=== PATIENT | male | born 1945 | race Caucasian/White ===

== ENCOUNTER 2022-05-11 16:48 | Emergency (ER) | payer MEDICARE ==
[~2022-05-11] VITALS: Ht 182.9 cm; Wt 93.6 kg
[2022-05-11] VITALS (10 sets, daily range): BP systolic 138–148; BP diastolic 68–88
[2022-05-11] MEDS ORDERED: LOSARTAN POTASS25 MG PO (17:02)
[2022-05-11] MEDS ORDERED: ASPIRIN325 MG PO (17:03)
[2022-05-11] MEDS ORDERED: LOSARTAN POTASS50 MG PO (17:03)
[2022-05-11] MEDS ORDERED: OMEPRAZOLE10 MG PO (17:03)
[2022-05-11] MEDS ORDERED: LIPITOR20 MG PO (17:04)
[2022-05-11 17:56] LABS: BASO% 0.5 % (0-3); EOS% 0.8 % (0-8); HEMATOCRIT 44.2 % (39.0-50.0); HEMOGLOBIN 15.1 g/dl (14.0-18.0); IMMATURE GRANULOCYTES 0.2 % (0.0-5.0); LYMPH% 46.8 % (15-41); MEAN CELL VOLUME 88.6 fL CALC (80.0-100.0); MEAN CORPUSCULAR HGB 30.3 pG CALC (26.0-32.0); MEAN CORPUSCULAR HGB CONC 34.2 g/dL CAL (32.0-36.0); MONO% 4.1 % (2-13); NEUT# 4.81 thou/uL (1.82-7.42); NEUT% 47.6 % (42-76); RED BLOOD COUNT 4.99 mill/uL (4.70-6.10); RED CELL DISTRI WIDTH 12.4 % (11.5-15.5)
[2022-05-11 17:56] LABS: URINE BILIRUBIN - DIPSTICK NEGATIVE (NEGATIVE); URINE BLOOD DIPSTICK NEGATIVE (NEGATIVE); URINE COLOR YELLOW; URINE GLUCOSE - DIPSTICK NEGATIVE (NEGATIVE); URINE KETONE NEGATIVE (NEGATIVE); URINE LEUK ESTERASE NEGATIVE (NEGATIVE); URINE PROTEIN - DIPSTICK NEGATIVE (NEG-TRACE); URINE SPECIFIC GRAVITY >=1.030; URINE UROBILINOGEN - DIPSTICK 0.2 E.U./dL (0.2)
[2022-05-11 17:59] LABS: URINE NITRITE - DIPSTICK NEGATIVE (Negative)
[2022-05-11 18:12] LABS: ALKALINE PHOSPHATASE 52 u/l (38-126); ANION GAP 10 (6-22 (CALC)); BILIRUBIN, TOTAL 0.4 mg/dL (0.2-1.3); BUN 17 mg/dL (8-23); BUN/CREATININE RATIO 21 (12-20 (CALC)); CARBON DIOXIDE 24 mmol/l (22-30); CHLORIDE 106 mmol/l (95-108); CREATININE 0.8 mg/dL (0.7-1.3); GFR FOR AFR.AMER. > 60 ML/MIN (>=60 (CALC)); GFR OTHER RACES > 60 ML/MIN (>=60 (CALC)); POTASSIUM 4.4 mmol/l (3.5-5.1); SGOT/AST 29 u/l (19-48); SODIUM 136 mmol/l (137-146); TOTAL PROTEIN 6.6 g/dL (6.3-8.2)
[2022-05-11] MEDS ORDERED: MIRALAX17 GM PO (21:06)
[2022-05-11] MEDS ORDERED: CITRATE OF MEGNESIA PO (21:06)
== END 2022-05-11 21:36 | disposition home or self-care (01) ==
LOC: ED 16:48
PROVIDERS: Family Medicine
DX: K59.00 Constipation, unspecified (principal); I10 Essential (primary) hypertension; E78.00 Pure hypercholesterolemia, unspecified; Z95.1 Presence of aortocoronary bypass graft
CPT/HCPCS: Q9967